=== PATIENT | female | born 1975 | race Caucasian/White ===

== ENCOUNTER 2017-09-03 11:03 | Emergency (ER) | payer OTHER ==
[2017-09-03 11:12] VITALS: BP 125/73
--- NOTE | 2017-09-03 11:41 | UC ---
Respiratory Complaint HPI - HPI Summary HPI Summary: c/o cold like symptoms for the past 6 days and exacerbation of her cough variant asthma. States occasionally has yellow sputum production but mostly the cough is dry. She has been using the nebulizer but has problems inhaling MDIs due to cough. Denies fever, sore throat. LMD: 09-01-17 - History of Current Complaint Chief Complaint: UCRespiratory Stated Complaint: chest congestion, and asthma Time Seen by Provider: 09/03/17 11:31 Hx Last Menstrual Period: 09/01/17 - Allergies/Home Medications Allergies/Adverse Reactions: Allergies Allergy/AdvReac Type Severity Reaction Status Date / Time No Known Allergies Allergy Verified 09/03/17 11:08 PMH/Surg Hx/FS Hx/Imm Hx Previously Healthy: Yes Respiratory History: Asthma - hx - Surgical History Surgical History: Yes Surgery Procedure, Year, and Place: wisdom teeth - Social History Alcohol Use: Weekly Alcohol Amount: 2 drinks/ week Substance Use Type: None Smoking Status (MU): Never Smoked Tobacco Have You Smoked in the Last Year: No Review of Systems Constitutional: Negative ENT: Sinus Congestion Respiratory: Cough Is Patient Immunocompromised?: No All Other Systems Reviewed And Are Negative: Yes Physical Exam Triage Information Reviewed: Yes Appearance: Ill-Appearing Vital Signs: Initial Vital Signs Temp 97.6 F 09/03/17 11:09 Pulse 93 09/03/17 11:09 Resp 15 09/03/17 11:09 BP 125/73 09/03/17 11:09 Pulse Ox 100 09/03/17 11:09 Vital Signs Reviewed: Yes Eye Exam: Normal ENT Exam: Normal Neck exam: Normal Respiratory Exam: Normal Cardiovascular Exam: Normal UC Diagnostic Evaluation - Laboratory O2 Sat by Pulse Oximetry: 100 Respiratory Course/Dx - Course Course Of Treatment: Continue nebulizations and take antibiotics as prescribed. Start benzonatate as needed, po fluids and follow up with PCP - Differential Dx/Diagnosis Provider Diagnoses: bronchial asthma. Acute bronchitis Discharge - Discharge Plan Condition: Stable Disposition: HOME Patient Education Materials: Acute Bronchitis (ED) Referrals: Malaika Larry MD [Primary Care Provider] -
== END 2017-09-03 12:00 | disposition home or self-care (01) ==
LOC: UCEAST 11:03
DX: J45.909 Unspecified asthma, uncomplicated (principal); J20.9 Acute bronchitis, unspecified
CPT/HCPCS: 99212; G0463